=== PATIENT | male | born 1950 | race Caucasian/White ===

== ENCOUNTER 2017-12-05 15:57 | Emergency (ER) | payer MEDICARE, BC ==
[~2017-12-05] VITALS: Ht 177.8 cm; Wt 77.1 kg
[2017-12-05 15:57] VITALS: BP 154/87
--- NOTE | 2017-12-05 16:27 | NUR ---
PT TO [facility]
[2017-12-05] MEDS ORDERED: HYDROCODONE/APAP 5/325MG 1 EACH TABLET ONE (17:25)
[2017-12-05] MEDS ORDERED: HYDROCODONE/APAP 5/325MG 1 EACH TABLET PO ONE (17:30)
== END 2017-12-05 17:56 | disposition home or self-care (01) ==
LOC: EDBD 15:59 → ER 15:59
DX: S09.90XA Unspecified injury of head, initial encounter (principal); S13.9XXA Sprain of joints and ligaments of unspecified parts of neck, initial encounter; S20.211A Contusion of right front wall of thorax, initial encounter; S39.91XA Unspecified injury of abdomen, initial encounter; W01.198A Fall on same level from slipping, tripping and stumbling with subsequent striking against other object, initial encounter; Y93.89 Activity, other specified; Y92.89 Other specified places as the place of occurrence of the external cause; Y99.8 Other external cause status
CPT/HCPCS: 70450-TC; 71250-TC; 72125-TC; A4606; Z7610